=== PATIENT | female | born 1950 | race Caucasian/White ===

== ENCOUNTER → 2016-12-18 | Outpatient (CLI) | payer OTHER | LOC: FIMAGING 12:59 | PROVIDERS: ATTEND Surgery | DX: Z12.39 Encounter for other screening for malignant neoplasm of breast (principal); Z85.3 Personal history of malignant neoplasm of breast; Z90.13 Acquired absence of bilateral breasts and nipples ==

== ENCOUNTER 2017-12-20 08:07 | Emergency (ER) | payer OTHER ==
[2017-12-20] MEDS ORDERED: KETOROLAC 30 MG/1 ML SDV IVP ONE (08:35)
[2017-12-20] MEDS ORDERED: NS 1,000 ML IV ONE (08:35)
--- NOTE | 2017-12-20 08:39 | EDPHY ---
HPI/HX/ROS/PE/MDM Narrative: CHIEF COMPLAINT: "I have a really intense pain in my belly" HPI: The patient is a 67 y/o female with a history of breast cancer complaining of waxing and waning abdominal pain onset last night around midnight, about 8.5 hours ago. Her pain feels crampy and is diffuse throughout her abdomen, but worst in her RUQ. Pain is aggravated by movement, turning onto her side, lying down, and taking a deep breath. She was up all night and unable to get comfortable due to the pain. She noticed mild alleviation after bowel movements this morning. She has never experienced these symptoms previously. She felt normal yesterday prior to symptom onset and skied during the day without issue. She denies urinary symptoms, fever, cough, vomiting, recent trauma, recent illness, recent abnormal foods. She had an exploratory abdominal surgery after ski injury and remote appendectomy. No personal or familial history of gall bladder disease. REVIEW OF SYSTEMS: Aside from elements discussed in the HPI, a comprehensive 10-point review of systems was reviewed and is negative. PMH: Appendectomy 1967; breast cancer - two years post chemotherapy SOCIAL HISTORY: Lives in [place]. Retired. PHYSICAL EXAM: General:Patient is alert, in no acute distress. ENT:Eyes are normal to inspection. ENT inspection normal. Neck: Normal inspection. Full range of motion. Respiratory:No respiratory distress. Breath sounds normal bilaterally. Cardiovascular: Regular rate and rhythm. Strong peripheral pulses. Normal cap refill. Abdomen:The abdomen has mild diffuse tenderness and moderate RUQ tenderness to palpation. There are no peritoneal signs. Back: Normal to inspection. No tenderness to palpation. Skin: Normal color. No rash. Warm and dry. Extremities: Normal appearance. Full range of motion. Neuro: Oriented x3. Normal motor function. Normal sensory function. ED Course: This is a 67 y/o female with a history of breast cancer who presents with an 8.5 -hour history of waxing and waning RUQ abdominal pain. She has mild diffuse abdominal tenderness and moderate RUQ tenderness to palpation on exam. Presentation suspicious for gall bladder etiology. Plan for IV, labs, EKG, chest x-ray, abdominal US, and symptom management. 1L IV NS and 15mg IV Toradol ordered. The 12 lead EKG was interpreted by myself. See hard copy and/or "tracemaster" electronic copy for interpretation. Chest x-ray: nothing acute US is negative. Labs normal. Reassessed patient and discussed findings. Her pain has improved, but is still present. Recommended CT abdomen for further evaluation, which she agrees to. CT abdomen: nothing acute. Reevaluated patient and discussed work up. I've found no obvious cause for her symptoms today. She is feeling improved and ready to go home. Recommended GI follow up. Return precautions discussed. - Data Points Imaging Results: Imaging Impressions Abdomen Ultrasound 12/20/17 08:35 Impression: 1. No acute findings in the abdomen. 2. 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 Findings discussed with Heriberto De Luna MD on 12/20/2017 at 10:03 a.m. Chest X-Ray 12/20/17 08:39 Impression: Lung hyperexpansion, with no acute intrathoracic abnormality. Abdomen CT 12/20/17 10:07 Impression: 1. Normal CT appearance of the gallbladder and appendix. 2. Bilateral nonobstructive nephrolithiasis. 3. Moderate constipation/obstipation. 4. Nonspecific small amount of free fluid in the caudal right paracolic gutter and in the pelvic cul-de-sac. 5. Status post hysterectomy, with no adnexal mass observed. 6. Status post right total hip arthroplasty. Findings were discussed with Heriberto De Luna MD at 10:54, on 12/20/2017. If there is further clinical concern regarding the patient's ongoing right upper quadrant abdominal pain, perhaps a nuclear medicine hepatobiliary scan with gallbladder ejection fraction could be considered. Imaging: Discussed imaging studies w/ call or contact centre coach Radiologist, I viewed and interpreted images myself Laboratory Results: Laboratory Results 12/20/17 08:37 12/20/17 08:37 12/20/17 12/20/17 12/20/17 08:37 08:37 08:37 WBC 8.24 10^3/uL 10^3/uL (3.80-9.50) RBC 4.73 10^6/uL 10^6/uL (4.18-5.33) Hgb 14.7 g/dL g/dL (12.6-16.3) Hct 43.8 % % (38.0-47.0) MCV 92.6 fL fL (81.5-99.8) MCH 31.1 pg pg (27.9-34.1) MCHC 33.6 g/dL g/dL (32.4-36.7) RDW 13.4 % % (11.5-15.2) Plt Count 250 10^3/uL 10^3/uL (150-400) MPV 9.0 fL fL (8.7-11.7) Neut % (Auto) 79.9 % H % (39.3-74.2) Lymph % (Auto) 14.2 % L % (15.0-45.0) Briscoe % (Auto) 4.2 % L % (4.5-13.0) Eos % (Auto) 1.1 % % (0.6-7.6) Baso % (Auto) 0.4 % % (0.3-1.7) Nucleat RBC Rel Count 0.0 % % (0.0-0.2) Absolute Neuts (auto) 6.58 10^3/uL H 10^3/uL (1.70-6.50) Absolute Lymphs (auto) 1.17 10^3/uL 10^3/uL (1.00-3.00) Absolute Monos (auto) 0.35 10^3/uL 10^3/uL (0.30-0.80) Absolute Eos (auto) 0.09 10^3/uL 10^3/uL (0.03-0.40) Absolute Basos (auto) 0.03 10^3/uL 10^3/uL (0.02-0.10) Absolute Nucleated RBC 0.00 10^3/uL 10^3/uL (0-0.01) Immature Gran % 0.2 % % (0.0-1.1) Immature Gran # 0.02 10^3/uL 10^3/uL (0.00-0.10) Sodium 142 mEq/L mEq/L (135-145) Potassium 4.2 mEq/L mEq/L (3.5-5.2) Chloride 104 mEq/L mEq/L (97-110) Carbon Dioxide 26 mEq/l mEq/l (22-31) Anion Gap 12 mEq/L mEq/L (8-16) BUN 17 mg/dL mg/dL (7-23) Creatinine 0.9 mg/dL mg/dL (0.6-1.0) Estimated GFR > 60 Glucose 96 mg/dL mg/dL (70-100) Calcium 9.1 mg/dL mg/dL (8.5-10.4) Total Bilirubin 0.9 mg/dL mg/dL (0.1-1.4) Conjugated Bilirubin 0.4 mg/dL mg/dL (0.0-0.5) Unconjugated Bilirubin 0.5 mg/dL mg/dL (0.0-1.1) AST 32 IU/L IU/L (14-46) ALT 42 IU/L IU/L (9-52) Alkaline Phosphatase 42 IU/L IU/L (38-126) Total Protein 6.9 g/dL g/dL (6.3-8.2) Albumin 4.3 g/dL g/dL (3.5-5.0) Lipase 116 IU/L IU/L (23-300) Beta HCG, Qual NEGATIVE Medications Given: Discontinued Medications Sodium Chloride (Ns) 1,000 mls @ 0 mls/hr IV EDNOW ONE; Wide Open PRN Reason: Protocol Stop: 12/20/17 08:36 Last Admin: 12/20/17 08:39 Dose: 1,000 mls Ketorolac Tromethamine (Toradol) 15 mg IVP EDNOW ONE Stop: 12/20/17 08:36 Last Admin: 12/20/17 08:40 Dose: 15 mg General Time Seen by Provider: 12/20/17 08:23 Initial Vital Signs: Initial Vital Signs Temperature (C) 36.6 C 12/20/17 08:22 Heart Rate 67 12/20/17 08:22 Respiratory Rate 16 12/20/17 08:22 Blood Pressure 102/75 12/20/17 08:22 O2 Sat (%) 96 12/20/17 08:22 O2 Delivery Mode Room Air Allergies/Adverse Reactions: No Known Allergies Allergy (Unverified 12/20/17 08:20) Home Medications: Medication Instructions Recorded Atorvastatin Calcium [Lipitor 10 10 mg PO HS 10/26/13 mg (*)] clonazePAM [Klonopin (*)] 0.5 - 1 mg PO HS 10/26/13 Cholecalciferol Vit D3 [Vitamin D3 2,000 units PO BID 07/22/15 2000 units] Herbals/Supplements -Info Only 1 ea PO DAILY 07/22/15 Ascorbic Acid [Vitamin C 500 mg 1,000 mg PO DAILY 08/17/15 (*)] Calcium Carb W/Vit D [Calcium Carb 1,000 mg PO BID 08/17/15 W/Vit D 500/200 (*)] Calcium Polycarbophil [FIBERCON] 1,875 mg PO BID 08/17/15 Zinc Gluconate [Zinc Chelated 50mg 50 mg PO DAILY 08/17/15 (*)] Effexor Xr 12/20/17 Metoprolol Succinate 12/20/17 Departure - Departure Disposition: Home, Routine, Self-Care Clinical Impression: Abdominal pain Qualifiers: Abdominal location: right upper quadrant Qualified Code(s): R10.11 - Right upper quadrant pain Condition: Good Instructions: Abdominal Pain (ED) Additional Instructions: Follow up with turkey roll maker next week. I recommend calling today to schedule this appointment. Return to the ED for any worsening of condition. Referrals: Evy Armando MD [Primary Care Provider] - As per Instructions Willie Luevano MD [Medical Doctor] - As per Instructions Report Scribed for: Heriberto De Luna Report Scribed by: Fanta Mandujano Date of Report: 12/20/17 Time of Report: 08:39 Physician Review and Approval Statement: Portions of this note were transcribed by an ED scribe. I personally performed the history, physical exam, and medical decision making; and confirm the accuracy of the information in the transcribed note.
[2017-12-20 08:42] LABS: PLATELET COUNT 250 10^3/uL (150-400)
[2017-12-20] MEDS ORDERED: IOPAMIDOL (ISOVUE-300) 100 ML BTL ONE (10:11)
[2017-12-20 11:46] VITALS: BP 112/75
== END 2017-12-20 11:45 | disposition home or self-care (01) ==
DX: R10.11 Right upper quadrant pain (principal); E86.9 Volume depletion, unspecified; Z85.3 Personal history of malignant neoplasm of breast; Z90.49 Acquired absence of other specified parts of digestive tract
CPT/HCPCS: 71046; 74177; 76705; 96361; 96374; 99285; J1885; Q9967

== ENCOUNTER → 2018-09-12 | Outpatient (CLI) | payer OTHER | LOC: BMCIMAGING 11:28 | PROVIDERS: ATTEND Internal Medicine | DX: J40 Bronchitis, not specified as acute or chronic (principal) ==

== ENCOUNTER → 2018-09-19 | Outpatient (CLI) | payer OTHER | LOC: BMCIMAGING 13:20 | PROVIDERS: ATTEND Internal Medicine | DX: R50.9 Fever, unspecified (principal); J34.89 Other specified disorders of nose and nasal sinuses; R91.8 Other nonspecific abnormal finding of lung field ==